=== PATIENT | female | born 1980 | race Caucasian/White ===

== ENCOUNTER 2018-07-15 21:41 | Emergency (ER) | payer SELFPAY ==
[~2018-07-15] VITALS: Ht 162.6 cm; Wt 60.0 kg
[2018-07-15 22:06] VITALS: Ht 162.6 cm; Wt 60.0 kg
[2018-07-16] MEDS ORDERED: HYDROCODONE/APAP (5/325) TAB PO ONE (02:00)
[2018-07-16] MEDS ORDERED: KETOROLAC 60 MG INJ IM STA (02:00)
[2018-07-16] MEDS ORDERED: HYDR-4011 PO (09:23)
[2018-07-16] MEDS ORDERED: NAPR-985 PO (09:24)
== END 2018-07-16 02:20 | disposition left against medical advice (07) ==
LOC: FTE 21:41
DX: M79.601 Pain in right arm (principal)
CPT/HCPCS: 99282

== ENCOUNTER 2018-07-16 06:12 | Emergency (ER) | payer MEDICAID ==
[~2018-07-16] VITALS: Ht 162.6 cm; Wt 60.0 kg
[2018-07-16 06:15] VITALS: Ht 162.6 cm; Wt 60.0 kg
[2018-07-16] MEDS ORDERED: ONDANSETRON (ODT) 4 MG TAB ODT STA (07:57)
[2018-07-16] MEDS ORDERED: HYDROCODONE/APAP (5/325) TAB PO ONE (08:00)
[2018-07-16] MEDS ORDERED: HYDR-4011 PO (09:23)
[2018-07-16] MEDS ORDERED: NAPR-985 PO (09:24)
--- NOTE | 2018-07-16 10:26 | ERD ---
ER Documentation Chief Complaint Chief Complaint s/p trip and fall; no LOC; right elbow/wrist pain HPI 38-year-old female presenting with pain to her right elbow. Patient fell last night when walking across the street. He hit her right elbow and sustained an abrasion to bilateral knees and chin. Denies any loose teeth. No loss of consciousness. No vomiting. No headaches. No visual changes. Took Tylenol 12 hours ago with no medication sent. Denies medical problems. NKDA. Surgical history denies. Social history denies. [id number] ROS All systems reviewed and are negative except as per history of present illness. Medications Home Meds Active Scripts Naproxen* (Naprosyn*) 500 Mg Tablet, 500 MG PO BID PRN for PAIN AND/OR INFLAMMATION, #30 TAB Prov:FABRICE ALCALA PA-C 07/16/18 Hydrocodone/Acetaminophen (Fannin 5-325 Tablet) 1 Each Tablet, 1 TAB PO Q6H PRN for PAIN, #7 TAB Prov:FABRICE ALCALA PA-C 07/16/18 Allergies Allergies: Coded Allergies: No Known Allergy (Unverified , 07/16/18) PMhx/Soc Medical and Surgical Hx: pt denies Medical Hx, pt denies Surgical Hx Hx Alcohol Use: No Hx Substance Use: No Hx Tobacco Use: No FmHx Family History: No diabetes, No coronary disease, No other Physical Exam Vitals Vital Signs Date Temp Pulse Resp B/P (MAP) Pulse Ox O2 O2 Flow FiO2 Time Delivery Rate 07/16/18 98.3 85 18 138/81 99 06:15 (100) Physical Exam GENERAL: The patient is well-appearing, well-nourished, in no acute distress HEENT: Atraumatic. Conjunctivae are pink. Pupils equal, round, and reactive to light. There is no scleral icterus. Tympanic membranes clear bilaterally. Oropharynx clear. CHEST: Clear to auscultation bilaterally. There are no rales, wheezes or rhonchi. HEART: Regular rate and rhythm. No murmurs, clicks, rubs or gallops. EXTREMITIES: Tender to palpation to right elbow. No obvious deformity. Tender palpation over the wrist. No bony step-offs noted over the clavicle. Decreased range of motion secondary to pain. Distal pulses intact. Normal sensation to fingers of the right extremity. NEUROLOGIC: Alert and oriented. Cranial nerves II through XII intact. Motor strength in all 4 extremities with 5 out of 5 strength. Sensation grossly intact. Normal speech and gait. SKIN: Superficial abrasions to bilateral knees and chin. No lacerations. Results 24 hrs Current Medications Medications Dose Sig/Sy Start Time Status Last (Trade) Ordered Route PRN Stop Time Admin Dose Reason Admin 1 tab ONCE ONCE 07/16/18 DC 07/16/18 Acetaminophen PO 08:00 07/16/18 08:02 / 08:01 Hydrocodone Bitart (Fannin (5/325)) Ondansetron 4 mg ONCE STAT 07/16/18 DC 07/16/18 HCl (Zofran ODT 07:57 07/16/18 08:02 Odt) 07:59 Procedures/MDM DIAGNOSTIC IMAGING REPORT Patient: HELIO GONGORA : 1980 Age: 38 Sex: F MR #: [id number] DOS: 07/16/18 0757 Ordering MD: JULIET ALCALA PA-C Location: [facility] Room/Bed: PROCEDURE: XR Elbow. CLINICAL INDICATION: Fall TECHNIQUE: Three views of the right elbow are available for review COMPARISON: None available FINDINGS: There is an acute, comminuted and mildly displaced radial head fracture with involvement of the articular surface. Fracture fragments are displaced. There is spurring at the coronoid process. The ulnohumeral articulation is otherwise maintained. There is an elbow joint effusion. IMPRESSION: 1. Acute, comminuted displaced radial head fracture. 2. Elbow joint effusion. DIAGNOSTIC IMAGING REPORT Patient: HELIO GONGORA : 1980 Age: 38 Sex: F MR #: [id number] DOS: 07/16/18 0757 Ordering MD: JULIET ALCALA PA-C Location: [facility] Room/Bed: PROCEDURE: XR Shoulder. CLINICAL INDICATION: Shoulder pain. Fall TECHNIQUE: 3 views of the right shoulder are available for review. COMPARISON: None available FINDINGS: The humeral head is located. The AC joint is maintained. There is no acute osseous or articular abnormality. No evidence for fracture. The visualized portions of the right lung are clear . IMPRESSION: 1. Preserved glenohumeral joint. 2. No acute fracture or dislocation is seen. DIAGNOSTIC IMAGING REPORT Patient: HELIO GONGORA : 1980 Age: 38 Sex: F [id number] DOS: 07/16/18 0757 Ordering MD: JULIET ALCALA PA-C Location: [facility] Room/Bed: PROCEDURE: XR Wrist. CLINICAL INDICATION: Right wrist pain. Injury TECHNIQUE: AP, lateral and oblique views of the right wrist were performed. COMPARISON: No prior studies are available for comparison. FINDINGS: There is no acute osseous or articular abnormality. No evidence for fracture. Bone mineral density is preserved. The articular surfaces are smooth without evidence of marginal erosions. Carpal alignment appears maintained. The soft tissues are intact without evidence of calcifications. IMPRESSION: 1. No acute osseous abnormality. 2. Preserved joint spaces ER Course: Long-arm splint applied to right upper extremity in the ER. Patient is neuro intact pre-and post splint application. Sling applied in ED. MDM: 38-year-old female presenting after a fall. I have low suspicion for tendon or ligament rupture. I low suspicion for neuro deficit. Patient had a fracture noted of the elbow and is recommended follow-up with orthopedist. Patient is told if symptoms change or worsen to return immediately to the ER. All questions answered at discharge Departure Diagnosis: Primary Impression: Elbow fracture Condition: Stable Patient Instructions: Elbow Fracture Referrals: CARLOS ENRIQUE RDZ MD [facility] YOU HAVE RECEIVED A MEDICAL SCREENING EXAM AND THE RESULTS INDICATE THAT YOU DO NOT HAVE A CONDITION THAT REQUIRES URGENT TREATMENT IN THE EMERGENCY DEPARTMENT. FURTHER EVALUATION AND TREATMENT OF YOUR CONDITION CAN WAIT UNTIL YOU ARE SEEN IN YOUR DOCTORS OFFICE WITHIN THE NEXT 1-2 DAYS. IT IS YOUR RESPONSIBILITY TO MAKE AN APPOINTMENT FOR FOLOW-UP CARE. IF YOU HAVE A PRIMARY DOCTOR --you should call your primary doctor and schedule an appointment IF YOU DO NOT HAVE A PRIMARY DOCTOR YOU CAN CALL OUR PHYSICIAN REFERRAL HOTLINE AT IF YOU CAN NOT AFFORD TO SEE A PHYSICIAN YOU CAN CHOSE FROM THE FOLLOWING [facility] [address] [facility]. [facility] [address] [facility]. [facility] [address] [facility] [address] [facility] [address] [facility]. [facility] [address] [facility] Hours: Mon-Fri 9:00 AM - 5:00 PM Additional Instructions: FOLLOW UP WITH YOUR PRIMARY CARE PHYSICIAN TOMORROW.Return to this facility if you are not improving as expected. FABRICE ALCALA PA-C Jul 16, 2018 10:26
== END 2018-07-16 09:56 | disposition home or self-care (01) ==
LOC: FTE 06:12
DX: S42.401A Unspecified fracture of lower end of right humerus, initial encounter for closed fracture (principal); S80.211A Abrasion, right knee, initial encounter; S80.212A Abrasion, left knee, initial encounter; S00.81XA Abrasion of other part of head, initial encounter; W01.0XXA Fall on same level from slipping, tripping and stumbling without subsequent striking against object, initial encounter; Y92.410 Unspecified street and highway as the place of occurrence of the external cause
CPT/HCPCS: 29105; 73030; 73080; 73110; Z7502; Z7610